=== PATIENT | male | born 1955 | race Caucasian/White ===

== ENCOUNTER 2016-12-19 17:10 | Emergency (ER) | payer MEDICAID, OTHER ==
[~2016-12-19] VITALS: Wt 82.5 kg
[~2016-12-19 17:10] MED LIST: HYDR-3720 PO; TAMS-14 PO
[2016-12-19] MEDS ORDERED: KETOROLAC 30 MG INJ IV STA (17:29)
[2016-12-19 17:51] LABS: ADD SCAN DIFF NO
[2016-12-19 18:04] LABS: POTASSIUM 3.8 mmol/L (3.5-5.1)
[2016-12-19 18:06] LABS: BILIRUBIN,INDIRECT 0.4 mg/dl (0-1.1); BILIRUBIN,TOTAL 0.4 mg/dl (0.2-1.3); CREATININE 0.82 mg/dl (0.61-1.24)
[2016-12-19 18:07] LABS: ALBUMIN/GLOBULIN RATIO 1.17; TOTAL PROTEIN 7.4 g/dl (6.1-8.1)
[2016-12-19 18:08] LABS: CALCIUM 9.2 mg/dl (8.4-10.2)
--- NOTE | 2016-12-19 18:11 | RADRPT ---
PROCEDURE: XR Wrist. CLINICAL INDICATION: Pain. TECHNIQUE: Three views of the left wrist. COMPARISON: None available. FINDINGS: No fracture or dislocation is identified. There is a nonspecific 7 mm ovoid radiopacity in the soft tissues dorsal and distal to the ulnar styloid. The joint spaces are preserved. There is no signifi cant soft tissue swelling. IMPRESSION: 1. No fracture or dislocation of the left wrist. 2. Nonspecific 7 mm ovoid radiopacity in the soft tissues dorsal and distal to the ulnar styloid, p ossibly a soft tissue calcification. This could be further evaluated with CT or MRI, as clinically warranted. RPTAT: HTAR .Victor Hugo Barry MD, Date Time Electronically viewed and signed by .Victor Hugo Barry MD, on 12/19/2016 18:11 .R/
[2016-12-19 18:13] LABS: BASOPHILS % 0.5 % (0.0-2.0); EOSINOPHILS # 0.6 10^3/ul (0.0-0.5); EOSINOPHILS % 8.1 % (0.0-7.0); HEMATOCRIT 46.2 % (42.0-52.0); HEMOGLOBIN 15.4 g/dl (14.0-18.0); LYMPHOCYTES # 2.5 10^3/ul (0.8-2.9); LYMPHOCYTES % 33.1 % (15.0-51.0); MEAN CORPUSCULAR HEMOGLOBIN 27.9 pg (29.0-33.0); MEAN CORPUSCULAR HGB CONC 33.3 g/dl (32.0-37.0); MEAN CORPUSCULAR VOLUME 83.7 fl (82.0-101.0); MEAN PLATELET VOLUME 8.6 fl (7.4-10.4); MONOCYTE # 0.6 10^3/ul (0.3-0.9); MONOCYTES % 8.5 % (0.0-11.0); NEUTROPHIL # 3.7 10^3/ul (1.6-7.5); NEUTROPHILS % 49.4 % (39.0-77.0); PLATELET COUNT 213 10^3/UL (140-415); RED BLOOD COUNT 5.52 10^6/ul (4.70-6.10); RED CELL DISTRIBUTION WIDTH 13.1 % (11.5-14.5); WHITE BLOOD COUNT 7.4 10^3/ul (4.8-10.8)
[2016-12-19] MEDS ORDERED: DEXAMETHASONE 10 MG/ML 1 ML INJ IV ONE (19:30)
[2016-12-19] MEDS ORDERED: INDO25CA25 PO (19:30)
[2016-12-19] MEDS ORDERED: HYDR-906 PO (19:30)
--- NOTE | 2016-12-19 19:34 | ERD ---
ER Documentation Chief Complaint Date/Time DATE: 12/19/16 TIME: 19:32 Chief Complaint LEFT HAND PAIN/REDNESS/SWELLING HPI 61-year-old male complains of left wrist swelling for last few days. He had a similar episode in his left lower extremity several years ago and resolved without treatment. He denies fevers or history of trauma denies any bite or inciting events. He denies restricted range of motion or weakness. Denies fevers. ROS All systems reviewed and are negative except as per history of present illness. Medications Home Meds Active Scripts Hydrocodone/Acetaminophen ([place] 5-325 Tablet) 1 Each Tablet, 1 EACH PO QID, # 14 TAB Prov:NANCY BORJAS MD 12/19/16 Indomethacin* (Indocin*) 25 Mg Capsule, 25 MG PO Q6, #20 CAP Prov:NANCY BORJAS MD 12/19/16 Hydrocodone Bit-Acetaminophen* ([place]*) 7.5-325 Tablet, 2 TAB PO Q4H Y for PAIN , #20 TAB Prov:RODNEY FREED DO 03/04/16 Tamsulosin Hcl* (Flomax*) 0.4 Mg Cap.er.24h, 0.4 MG PO BID, #30 CAP Prov:RODNEY FREED DO 03/04/16 Allergies Allergies: Coded Allergies: No Known Allergy (Unverified , 03/04/16) PMhx/Soc History of Surgery: No Anesthesia Reaction: No Hx Neurological Disorder: No Hx Respiratory Disorders: No Hx Cardiac Disorders: Yes (HTN) Hx Psychiatric Problems: No Hx Miscellaneous Medical Probl: Yes (kidney stones) Hx Alcohol Use: No Hx Substance Use: No Hx Tobacco Use: No Smoking Status: Never smoker Physical Exam Vitals Vital Signs Date Time Temp Pulse Resp B/P Pulse Ox O2 Delivery O2 Flow Rate FiO2 12/19/16 17:14 99.1 68 17 174/87 96 Physical Exam Const: [] Alert, [id number] Head: Atraumatic Eyes: Normal Conjunctiva ENT: Normal External Ears, Nose and Mouth. Neck: Full range of motion..~ No meningismus. Resp: Clear to auscultation bilaterally Cardio: Regular rate and rhythm, no murmurs Abd: Soft, non tender, non distended. Normal bowel sounds Skin: No petechiae or rashes Back: No midline or flank tenderness Ext: No cyanosis, or edema. There is some redness and warmth of the left wrist joint with effusion. There is no deformities, restricted range of motion or weakness. There is no streaking or area of puncture or signs of trauma Neur: Awake and alert Psych: Normal Mood and Affect Result Diagram: 12/19/16 1745 12/19/16 1745 Results 24 hrs Laboratory Tests Test 12/19/16 17:45 Alanine Aminotransferase (ALT/SGPT) 24IU/L Albumin 4.0g/dl Albumin/Globulin Ratio 1.17 Alkaline Phosphatase 115IU/L Anion Gap 16 Aspartate Amino Transf (AST/SGOT) 20IU/L Basophils # 0.010^3/ul Basophils % 0.5% Blood Urea Nitrogen 13mg/dl C-Reactive Protein 3.1mg/dl Calcium Level 9.2mg/dl Carbon Dioxide Level 26mmol/L Chloride Level 105mmol/L Creatinine 0.82mg/dl Direct Bilirubin 0.00mg/dl Eosinophils # 0.610^3/ul Eosinophils % 8.1% Erythrocyte Sedimentation Rate 16mm/Hr Globulin 3.40g/dl Glucose Level 145mg/dl Hematocrit 46.2% Hemoglobin 15.4g/dl Indirect Bilirubin 0.4mg/dl Lymphocytes # 2.510^3/ul Lymphocytes % 33.1% Mean Corpuscular Hemoglobin 27.9pg Mean Corpuscular Hemoglobin Concent 33.3g/dl Mean Corpuscular Volume 83.7fl Mean Platelet Volume 8.6fl Monocytes # 0.610^3/ul Monocytes % 8.5% Neutrophils # 3.710^3/ul Neutrophils % 49.4% Nucleated Red Blood Cells # 0.010^3/ul Nucleated Red Blood Cells % 0.0/100WBC Platelet Count 27550^3/UL Potassium Level 3.8mmol/L Red Blood Count 5.5210^6/ul Red Cell Distribution Width 13.1% Sodium Level 143mmol/L Total Bilirubin 0.4mg/dl Total Protein 7.4g/dl Uric Acid 6.2mg/dl White Blood Count 7.410^3/ul Current Medications Medications (Trade) Dose Ordered Sig/Mira Route PRN Reason Start Time Stop Time Status Last Admin Dose Admin Ketorolac Tromethamine (Toradol) 30 mg ONCE STAT IV 12/19/16 17:29 12/19/16 17:32 DC 12/19/16 17:37 Dexamethasone (Decadron) 8 mg ONCE ONCE IV 12/19/16 19:30 12/19/16 19:31 DC Procedures/MDM Patient presents with acute inflammation of left wrist joint. CBC and CMP and uric acid all normal. CBC shows high eosinophils. CRP is slightly elevated ESR shows no acute abnormalities. X-ray left wrist 3V Interpreted by me: Scaphoid: [Normal] Bones: [No fracture] Joints: [No dislocation] Foreign body: [None]. Impression-no acute findings a left wrist x-ray Patient was given prednisone 60 mg p.o. and Toradol 30 mg IM . Patient has signs and symptoms of acute arthralgia. Patient shows no signs of septic arthritis of acute bacterial infection. It appears to be some type of inflammatory arthritis possibly gout although uric acid is normal. Patient will be treated with Indocin and [place] and instructions for wound check in 2-3 days. Patient was placed in a left wrist Velcro brace. Splint Assessment: Neurovascularly intact post splint placement with good fit. The patient was stable with no new complaints during the ER course. Clinically, there is no current evidence to suggest meningitis, sepsis, acute abdomen, pneumonia, acute coronary syndrome, pulmonary embolism, or any other emergent condition appearing to require further evaluation or hospitalization. The patient should certainly return for any new or worsening symptoms per the aftercare instructions. They should otherwise follow-up with her primary care doctor for reevaluation this week. Departure Diagnosis: Primary Impression: Arthralgia Joint pain location: wrist Laterality: left Qualified Code: M25.532 - Arthralgia of left wrist Condition: Stable Patient Instructions: Arthralgia Additional Instructions: Examines normal hoy. Cheque otro vez con gil doctor primario en el proximo hayes or regresa para mas o nueva simptomas. CHEQUE EN 2-3 HAYES , MAS PRONTO PARA FIEBRE, MAS SIMPTOMAS. NANCY BORJAS MD Dec 19, 2016 19:34
[2016-12-19] MEDS ORDERED: predniSONE 20 MG TAB PO ONE (20:00)
[2016-12-19 20:19] VITALS: BP 169/87; PULSE 61; RESP 16
== END 2016-12-19 20:20 | disposition home or self-care (01) ==
LOC: FTE 17:10
DX: M25.532 Pain in left wrist (principal); I10 Essential (primary) hypertension
CPT/HCPCS: 29125; 73110; 80053; 84560; 85025; 85651; 86140; 96374; J1885; J7512; Z7502

== ENCOUNTER 2017-08-14 19:10 | Emergency (ER) | payer OTHER ==
[~2017-08-14] VITALS: Ht 180.3 cm; Wt 82.5 kg
[~2017-08-14 19:10] MED LIST changes: +HYDR-906 PO; +INDO25CA25 PO
[2017-08-14 19:25] VITALS: Ht 180.3 cm; Wt 82.5 kg
[2017-08-14] MEDS ORDERED: SOD CHLORIDE 0.9% 1,000 ML IV STA (21:11)
[2017-08-14] MEDS ORDERED: ONDANSETRON 4 MG INJ IV STA (21:11)
[2017-08-14] MEDS ORDERED: KETOROLAC 15 MG INJ IV STA (21:11)
[2017-08-15] MEDS ORDERED: ONDA4TAB8 PO (00:16)
[2017-08-15 00:30] VITALS: BP 133/81; PULSE 56; RESP 17
--- NOTE | 2017-08-15 03:31 | ERD ---
ER Documentation Chief Complaint Chief Complaint abdominal pain x 2 hours HPI This is a 61-year-old male with a past medical history of nephrolithiasis who is presenting with generalized abdominal discomfort and nausea for approximately 2 hours today. The patient notes that he also feels like he has bilateral flank pain. The patient thinks that this might be a similar presentation to the last time he had kidney stones and he wanted to be evaluated further. The patient does not go into detail about exactly what he ate this afternoon, but he does note that the symptoms started approximately 1- 2 hours after he ate. He feels that perhaps this could be related as well. The patient does not endorse any active vomiting or diarrhea. The patient denies feeling sick recently. The patient denies fever or chills. The patient has had no headache or vision changes. The patient does not endorse neck or back pain. The patient denies lightheadedness or dizziness. The patient has had no chest pain or shortness of breath or trouble breathing. The patient denies changes to bowel movements or urination. The patient has had no focal deficits. The patient has had no weakness or numbness or tingling to the face or extremities. ROS All systems reviewed and are negative except as per history of present illness. Medications Home Meds Active Scripts Ondansetron Hcl* (Zofran*) 4 Mg Tablet, 4 MG PO Q6H for NAUSEA AND/OR VOMITING, #20 TAB Prov:DAVID SAUER MD 08/15/17 Hydrocodone/Acetaminophen ([place] 5-325 Tablet) 1 Each Tablet, 1 EACH PO QID, # 14 TAB Prov:NANCY BORJAS MD 12/19/16 Indomethacin* (Indocin*) 25 Mg Capsule, 25 MG PO Q6, #20 CAP Prov:NANCY BORJAS MD 12/19/16 Hydrocodone Bit-Acetaminophen* ([place]*) 7.5-325 Tablet, 2 TAB PO Q4H Y for PAIN , #20 TAB Prov:RODNEY FREED DO 03/04/16 Tamsulosin Hcl* (Flomax*) 0.4 Mg Cap.er.24h, 0.4 MG PO BID, #30 CAP Prov:RODNEY FREED DO 03/04/16 Allergies Allergies: Coded Allergies: No Known Allergy (Unverified , 08/14/17) PMhx/Soc History of Surgery: Yes (kidney stent) Anesthesia Reaction: No Hx Neurological Disorder: No Hx Respiratory Disorders: No Hx Cardiac Disorders: Yes (HTN) Hx Psychiatric Problems: No Hx Miscellaneous Medical Probl: Yes (kidney stones) Hx Alcohol Use: No Hx Substance Use: No Hx Tobacco Use: No Smoking Status: Never smoker FmHx Family History: No coronary disease, No diabetes Physical Exam Vitals Vital Signs Date Time Temp Pulse Resp B/P Pulse Ox O2 Delivery O2 Flow Rate FiO2 08/15/17 00:30 56 17 133/81 97 Room Air 08/15/17 00:00 59 19 129/73 95 Room Air 08/14/17 23:00 59 20 143/75 98 Room Air 08/14/17 21:20 45 18 145/98 99 Room Air 08/14/17 19:25 98.5 56 20 184/82 97 Physical Exam Const: No apparent distress, well-developed, well-nourished Head: Atraumatic Eyes: Normal Conjunctiva. Extraocular movements intact. ENT: Normal External Ears, Nose and Mouth. Neck: Full range of motion. ~ No meningismus. Resp: Clear to auscultation bilaterally Cardio: Regular rate and rhythm, no murmurs Abd: Soft, non distended, mild epigastric discomfort. Normal bowel sounds Skin: No petechiae or rashes Back: No midline or flank tenderness Ext: No cyanosis, or edema Neur: Awake and alert, oriented 4. Cranial nerves intact. No facial droop. Normal strength and sensation in all extremities. Coordination with finger to nose normal. Psych: Normal Mood and Affect Result Diagram: 08/14/17 2100 08/14/17 2100 Results 24 hrs Laboratory Tests Test 08/14/17 21:00 08/14/17 21:02 White Blood Count 11.110^3/ul Red Blood Count 5.9510^6/ul Hemoglobin 17.1g/dl Hematocrit 50.1% Mean Corpuscular Volume 84.2fl Mean Corpuscular Hemoglobin 28.7pg Mean Corpuscular Hemoglobin Concent 34.1g/dl Red Cell Distribution Width 13.0% Platelet Count 54893^3/UL Mean Platelet Volume 8.7fl Neutrophils % 70.3% Lymphocytes % 19.1% Monocytes % 7.0% Eosinophils % 2.6% Basophils % 0.5% Nucleated Red Blood Cells % 0.0/100WBC Neutrophils # 7.810^3/ul Lymphocytes # 2.110^3/ul Monocytes # 0.810^3/ul Eosinophils # 0.310^3/ul Basophils # 0.110^3/ul Nucleated Red Blood Cells # 0.010^3/ul Sodium Level 143mmol/L Potassium Level 3.9mmol/L Chloride Level 101mmol/L Carbon Dioxide Level 28mmol/L Anion Gap 18 Blood Urea Nitrogen 15mg/dl Creatinine 1.02mg/dl Glucose Level 127mg/dl Calcium Level 9.6mg/dl Total Bilirubin 0.9mg/dl Direct Bilirubin 0.00mg/dl Indirect Bilirubin 0.9mg/dl Aspartate Amino Transf (AST/SGOT) 229IU/L Alanine Aminotransferase (ALT/SGPT) 140IU/L Alkaline Phosphatase 163IU/L Total Protein 9.0g/dl Albumin 4.9g/dl Globulin 4.10g/dl Albumin/Globulin Ratio 1.19 Lipase 144U/L Urine Color ASHUTOSH Urine Clarity CLEAR Urine pH 5.0 Urine Specific [place] 1.027 Urine Ketones NEGATIVEmg/dL Urine Nitrite NEGATIVEmg/dL Urine Bilirubin NEGATIVEmg/dL Urine Urobilinogen 2+mg/dL Urine Leukocyte Esterase NEGATIVELeu/ul Urine Microscopic RBC 1/HPF Urine Microscopic WBC 1/HPF Urine Mucus FEW/HPF Urine Hemoglobin NEGATIVEmg/dL Urine Glucose NEGATIVEmg/dL Urine Total Protein 1+mg/dl Current Medications Medications (Trade) Dose Ordered Sig/Mira Route PRN Reason Start Time Stop Time Status Last Admin Dose Admin Sodium Chloride (NS) 1,000 ml @ 1,000 mls/hr Q1H STAT IV 08/14/17 21:11 08/14/17 22:10 DC 08/14/17 21:25 Ondansetron HCl (Zofran Inj) 4 mg ONCE STAT IV 08/14/17 21:11 08/14/17 21:13 DC 08/14/17 21:25 Ketorolac Tromethamine (Toradol) 15 mg ONCE STAT IV 08/14/17 21:11 08/14/17 21:13 DC 08/14/17 21:25 Procedures/[facility] MDM The patient's presentation warrants further investigation. The patient has mild abdominal pain with nausea. His symptoms are not consistent with a kidney stone, but this may be evaluated for given his history. An abdominal workup will be performed. The patient's vital signs are stable. He is a little bradycardic, but he is not orthostatic. The patient's pain is not exquisite. I have low suspicion for mesenteric ischemia or ischemic colitis. I do not suspect AAA. Pancreatitis may be evaluated for. Renal or hepatic pathology may also be evaluated for. LABS The patient's blood work was obtained and reviewed. The patient's CBC shows mild leukocytosis without shift. I suspect this to be reactive. The patient is afebrile and does not appear systemically ill. I do not suspect a systemic infection. The patient is not anemic today. The patient's platelet count is unremarkable. The patient's BMP shows no signs of metabolic or electrolyte abnormality. The patient has normal renal function testing. The patient's LFTs do indicate a transaminitis. In discussing with the patient, he has not been around any homeless populations. He is not an IV drug user. He is not immunodeficient. He has not been around anyone else who has been sick with similar symptoms. He has not eaten any unclean vegetables. I have low suspicion for hepatitis. Transaminitis could be an acute phase reactant. This may be followed up as an outpatient. The patient's bilirubin is normal. I do not suspect an obstructive pathology. Lipase was negative and I do not suspect pancreatitis. The patient's urinalysis shows no signs of hematuria or infection. TREATMENT/DISPOSITION The patient received Toradol and Zofran and IV fluids in the emergency department with significant improvement of his symptoms. The patient will be sent home with a prescription for Zofran for any subsequent nausea. At this time, I feel that the patient stable for discharge. He will need follow -up with his primary care physician in 2-3 days. He will be given strict precautions with which to return to the emergency department. The patient's blood pressure was elevated at greater than 120/80 while in the emergency department. The patient was otherwise stable with no evidence of hypertensive urgency or emergency. The patient will require reevaluation of his blood pressure in 2-3 days, but this may be completed by a primary care physician as an outpatient. He does not require admission for blood pressure control. Departure Diagnosis: Primary Impression: Abdominal pain Abdominal location: epigastric Qualified Code: R10.13 - Epigastric pain Additional Impression: Transaminitis Condition: Stable Patient Instructions: Abdominal Pain Referrals: [facility] Huang (PCP) Additional Instructions: Thank you for for coming to [facility] for your care today. Please ask your nurse or provider if you have questions about your care today and do not leave until all your questions have been answered. Please use any medications given as directed and follow-up with your doctor (or the doctor you were referred to) in the next 1-3 days. If you do not have a primary care doctor [place] [facility] [place] You may also use motrin and tylenol as needed for fever and/or pain unless instructed otherwise by your provider or nurse. Indications for more urgent follow-up have been discussed, but you may return to the Emergency Department at ANY time for any worrisome or worsening symptoms. If you have abdominal pain, please know that no test or exam you received is perfect and you should follow up within 8 hours for continued pain. If you had any imaging studies today, such as an X-Ray or CT Scan, these studies will be reviewed later by a radiologist. You will be called if there are important findings that were not identified today, so make sure the contact information you provided at registration is correct. DAVID SAUER MD Aug 15, 2017 03:31
== END 2017-08-15 01:06 | disposition home or self-care (01) ==
LOC: E/R 19:10
DX: R10.13 Epigastric pain (principal); R74.0 Nonspecific elevation of levels of transaminase and lactic acid dehydrogenase [LDH]; I10 Essential (primary) hypertension; R40.2142 Coma scale, eyes open, spontaneous, at arrival to emergency department; R40.2252 Coma scale, best verbal response, oriented, at arrival to emergency department; R40.2362 Coma scale, best motor response, obeys commands, at arrival to emergency department
CPT/HCPCS: 36415; 80053; 81001; 83690; 85025; 87086; 96374; 96375; J1885; J2405; J7030; Z7502

== ENCOUNTER 2017-11-14 05:00 | Emergency (ER) | END 2017-11-14 07:14 | disposition home or self-care (01) ==